=== PATIENT | female | born 1935 | race Caucasian/White ===

== ENCOUNTER 2018-10-08 01:19 | Inpatient (IN) | payer OTHER, MEDICAID ==
[~2018-10-08] VITALS: Ht 157.5 cm; Wt 90.3 kg
[~2018-10-08 01:19] MED LIST: ACET-2165 PO; ASPI-1153 PO; ATOR20TA64 PO; CARV3.1246 PO; CRAN450C PO; DICL100G19 TP; DIPH25CA83 PO; DOCU250C14 PO; DULR10 RC; ESCI10TA PO; FAMO40TA7 PO; FENT1PAT8 TD; FURO-150 PO; IPRA3AMP9 INH; LORA-258 PO; NEU300 PO; OXYC10TA56 PO; VENL75CA PO; ZOLP5TAB2 PO; [UNRECOGNIZED DRUG - CODE] TP
[2018-10-08 01:22] VITALS: BP_SYST 147
[2018-10-08] MEDS ORDERED: LEVOFLOXACIN 500 MG/D5W 100 ML IV ONE (02:15)
[2018-10-08 02:25] LABS: BASOPHILS % (AUTO) 0.5 % (0.0-2.0); EOSINOPHILS # (AUTO) 0.3 K/uL (0.0-0.4); EOSINOPHILS % (AUTO) 3.1 % (0.0-4.0); HEMOGLOBIN 10.5 g/dL (12.0-16.0); LYMPHOCYTES # (AUTO) 2.2 K/uL (1.0-5.5); MEAN CORPUSCULAR HEMOGLOBIN 32 pg (27-31); MEAN CORPUSCULAR HGB CONC 34 % (32-36); MEAN CORPUSCULAR VOLUME 96 fL (79.0-98.0); MONOCYTES # (AUTO) 0.5 K/uL (0.0-1.0); MONOCYTES % (AUTO) 5.8 % (1.7-9.3); NEUTROPHILS # (AUTO) 5.6 K/uL (1.8-7.7); NEUTROPHILS % (AUTO) 64.6 % (40.0-70.0); PLATELET COUNT (AUTO) 175 K/uL (130-430); RED BLOOD CELL COUNT(AUTO) 3.24 MIL/uL (4.2-6.2); RED CELL DISTRIBUTION WIDTH 14.4 % (9.0-15.0); WHITE BLOOD COUNT (AUTO) 8.7 K/uL (4.8-10.8)
[2018-10-08] MEDS ORDERED: LIP20 PO (03:08)
[2018-10-08] MEDS ORDERED: DEXT30DR6 EACH EYE (03:08)
[2018-10-08] MEDS ORDERED: NEU300 PO (03:08)
[2018-10-08] MEDS ORDERED: CETI1TAB2 PO (03:08)
[2018-10-08] MEDS ORDERED: OCEAN NASAL SPRAY (03:08)
[2018-10-08] MEDS ORDERED: FAMO40TA71 PO (03:08)
[2018-10-08] MEDS ORDERED: TRAZ-218 PO (03:08)
[2018-10-08] MEDS ORDERED: OSCD500 PO (03:08)
[2018-10-08] MEDS ORDERED: ESCI20TA PO (03:08)
[2018-10-08] MEDS ORDERED: FERR140T2 PO (03:08)
[2018-10-08] MEDS ORDERED: FLEETMO RC (03:08)
[2018-10-08] MEDS ORDERED: RISP0.253 PO (03:08)
[2018-10-08] MEDS ORDERED: LIQUID PROTEIN PO (03:08)
[2018-10-08] MEDS ORDERED: MAALOX PO (03:08)
[2018-10-08 03:31] LABS: ANION GAP 3 (5-15); CALCIUM 8.6 mg/dL (8.4-11.0); CHLORIDE 105 mmol/L (98-107); CREATININE 0.68 mg/dL (0.55-1.30); GLUCOSE 98 mg/dL (70-99); POTASSIUM 3.7 mmol/L (3.5-5.1); SODIUM SERUM 142 mmol/L (136-145); UREA NITROGEN, BLOOD 17 mg/dL (8-21)
[2018-10-08 03:37] LABS: ALANINE AMINOTRANSFERASE 11 U/L (12-78); ALBUMIN 2.5 g/dL (3.4-4.8); ASPARTATE AMINOTRANSFERASE 18 U/L (10-37); TOTAL BILIRUBIN 0.2 mg/dL (0.0-1.0)
[2018-10-08 03:51] VITALS: BP_SYST 105
[2018-10-08] MEDS ORDERED: AMPICILLIN SODIUM/SULBACTAM NA 3 GM in NS 100 ML IV SCH (06:00)
[2018-10-08] MEDS ORDERED: AMPICILLIN SODIUM/SULBACTAM NA 3 GM VIAL ONE (06:01)
[2018-10-08] MEDS: AMPICILLIN SODIUM/SULBACTAM NA 3 GM in NS 100 ML IV SCH ×3 (06:10→23:47)
[2018-10-08 08:00] VITALS: BP_SYST 114
[2018-10-08] MEDS ORDERED: MINERAL OIL 133 ML ENEMA RC SCH (08:45)
[2018-10-08] MEDS ORDERED: FUROSEMIDE 20 MG TABLET PO ONE (08:45)
[2018-10-08] MEDS ORDERED: FUROSEMIDE 20 MG TABLET PO SCH (09:00)
[2018-10-08] MEDS: risperiDONE 0.25 MG TABLET (RisperDAL) PO SCH (09:07)
[2018-10-08] MEDS: DOCUSATE SODIUM 250 MG CAPSULE PO SCH ×2 (09:07→22:01)
[2018-10-08] MEDS: GABAPENTIN 300 MG CAPSULE PO SCH ×2 (09:08→22:01)
[2018-10-08] MEDS: FAMOTIDINE 20 MG TABLET PO SCH (09:08)
[2018-10-08] MEDS: FERROUS SULFATE 325 MG TABLET.DR PO SCH ×2 (09:08→22:01)
[2018-10-08] MEDS: ASPIRIN 81 MG TABLET(ECOTRIN) PO SCH (09:08)
[2018-10-08] MEDS: CALCIUM CARBONATE/VITAMIN D3 1 TAB TABLET PO SCH ×2 (09:08→22:01)
[2018-10-08 11:28] LABS: BILIRUBIN,URINE NEGATIVE (NEGATIVE); BLOOD, URINE 2+ (NEGATIVE); CLARITY/URINE CLOUDY (CLEAR); COLOR,URINE YELLOW (YELLOW); GLUCOSE,URINE NEGATIVE (NEGATIVE); KETONES,URINE NEGATIVE (NEGATIVE); LEUKOCYTE ESTERASE ,URINE 1+ (NEGATIVE); NITRITE, URINE POSITIVE (NEGATIVE); PH,URINE 7.5 (5.0-8.0); PROTEIN URINE NEGATIVE (NEGATIVE); UROBILINOGEN,URINE 0.2 (0.2-1.0)
[2018-10-08 12:07] LABS: BACTERIA,URINE MANY /HPF (None Seen)
[2018-10-08 12:54] VITALS: BP_SYST 106
[2018-10-08] MEDS: IPRATROPIUM/ALBUTEROL SULFATE 3 ML AMPUL.NEB (DUONEB) INH SCH ×2 (14:35→20:14)
[2018-10-08] MEDS: ACETAMINOPHEN 325 MG TABLET PO PRN (15:32)
[2018-10-08 17:35] VITALS: BP_SYST 99
[2018-10-08] MEDS: FUROSEMIDE 20 MG TABLET PO SCH (17:51)
[2018-10-08 20:00] VITALS: BP_SYST 107
[2018-10-08] MEDS ORDERED: PROTEIN PO SCH (21:00)
[2018-10-08] MEDS: CITALOPRAM HYDROBROMIDE 20 MG TABLET PO SCH (22:01)
[2018-10-08] MEDS: ATORVASTATIN 20 MG TABLET PO SCH (22:01)
[2018-10-08] MEDS: traZODone HCL 50 MG TABLET (DESYREL) PO SCH (22:01)
[2018-10-08] MEDS: SENNOSIDES 8.6 MG TABLET PO SCH (22:01)
[2018-10-08] MEDS: ENOXAPARIN SODIUM 30 MG/0.3 ML SYRINGE SUBCUT SCH (23:58)
[2018-10-09 04:30] VITALS: BP_SYST 126
[2018-10-09] MEDS: ACETAMINOPHEN 325 MG TABLET PO PRN ×3 (05:03→22:35)
[2018-10-09] MEDS: FUROSEMIDE 20 MG TABLET PO SCH ×2 (05:05→17:40)
[2018-10-09] MEDS: AMPICILLIN SODIUM/SULBACTAM NA 3 GM in NS 100 ML IV SCH ×3 (05:10→22:15)
[2018-10-09] MEDS: IPRATROPIUM/ALBUTEROL SULFATE 3 ML AMPUL.NEB (DUONEB) INH SCH ×2 (05:27→20:22)
[2018-10-09 08:00] VITALS: BP_SYST 128
[2018-10-09] MEDS: FAMOTIDINE 20 MG TABLET PO SCH (08:16)
[2018-10-09] MEDS: ASPIRIN 81 MG TABLET(ECOTRIN) PO SCH (08:16)
[2018-10-09] MEDS: FERROUS SULFATE 325 MG TABLET.DR PO SCH ×2 (08:16→20:31)
[2018-10-09] MEDS: CALCIUM CARBONATE/VITAMIN D3 1 TAB TABLET PO SCH ×2 (08:16→20:32)
[2018-10-09] MEDS: DOCUSATE SODIUM 250 MG CAPSULE PO SCH ×2 (08:16→20:31)
[2018-10-09] MEDS: risperiDONE 0.25 MG TABLET (RisperDAL) PO SCH (08:16)
[2018-10-09] MEDS: GABAPENTIN 300 MG CAPSULE PO SCH ×2 (08:16→20:31)
[2018-10-09] MEDS ORDERED: MAG-AL HYDROX/SIMETH 30 ML UDC PO PRN (08:30)
[2018-10-09] MEDS ORDERED: DEXTRAN EACH EYE SCH (09:00)
[2018-10-09] MEDS ORDERED: HYPROMELLOSE EACH EYE SCH (09:00)
[2018-10-09 13:17] VITALS: BP_SYST 116
[2018-10-09] MEDS: SODIUM CHLORIDE 0.65% NASAL SPRAY NS SCH ×2 (14:40→20:30)
[2018-10-09] MEDS: P-EPHED SUL/LORATADINE 1 TAB.SR TAB.SR.12H PO SCH ×2 (14:40→21:00)
[2018-10-09] MEDS: PEG 400/HYPROMELLOSE/GLYCERIN 15 ML DROPS EACH EYE SCH ×2 (14:40→20:30)
[2018-10-09 16:21] VITALS: BP_SYST 99
[2018-10-09] MEDS: VANCOMYCIN HCL 1,250 MG in NS 250 ML IV SCH (17:37)
[2018-10-09 20:00] VITALS: BP_SYST 124
[2018-10-09] MEDS: LORATADINE 10 MG TABLET PO SCH (20:31)
[2018-10-09] MEDS: CITALOPRAM HYDROBROMIDE 20 MG TABLET PO SCH (20:31)
[2018-10-09] MEDS: ATORVASTATIN 20 MG TABLET PO SCH (20:32)
[2018-10-09] MEDS: SENNOSIDES 8.6 MG TABLET PO SCH (20:32)
[2018-10-09] MEDS: traZODone HCL 50 MG TABLET (DESYREL) PO SCH (20:32)
[2018-10-09] MEDS: ENOXAPARIN SODIUM 30 MG/0.3 ML SYRINGE SUBCUT SCH (20:36)
[2018-10-10] MEDS ORDERED: traZODone HCL 50 MG TABLET (DESYREL) PO ONE
[2018-10-10 01:14] VITALS: BP_SYST 105
[2018-10-10] MEDS: ACETAMINOPHEN 325 MG TABLET PO PRN ×2 (05:45→13:56)
[2018-10-10] MEDS: AMPICILLIN SODIUM/SULBACTAM NA 3 GM in NS 100 ML IV SCH ×3 (05:46→21:29)
[2018-10-10] MEDS: FUROSEMIDE 20 MG TABLET PO SCH ×2 (06:18→17:38)
[2018-10-10] MEDS: IPRATROPIUM/ALBUTEROL SULFATE 3 ML AMPUL.NEB (DUONEB) INH SCH ×4 (06:38→19:50)
[2018-10-10 07:50] VITALS: BP_SYST 120
[2018-10-10] MEDS: PEG 400/HYPROMELLOSE/GLYCERIN 15 ML DROPS EACH EYE SCH ×3 (08:52→21:28)
[2018-10-10] MEDS: CALCIUM CARBONATE/VITAMIN D3 1 TAB TABLET PO SCH ×2 (08:53→21:28)
[2018-10-10] MEDS: ASPIRIN 81 MG TABLET(ECOTRIN) PO SCH (08:53)
[2018-10-10] MEDS: DOCUSATE SODIUM 250 MG CAPSULE PO SCH ×2 (08:53→21:27)
[2018-10-10] MEDS: GABAPENTIN 300 MG CAPSULE PO SCH ×2 (08:53→21:28)
[2018-10-10] MEDS: P-EPHED SUL/LORATADINE 1 TAB.SR TAB.SR.12H PO SCH ×2 (08:53→21:00)
[2018-10-10] MEDS: SODIUM CHLORIDE 0.65% NASAL SPRAY NS SCH ×2 (08:53→21:29)
[2018-10-10] MEDS: FAMOTIDINE 20 MG TABLET PO SCH (08:53)
[2018-10-10] MEDS: FERROUS SULFATE 325 MG TABLET.DR PO SCH ×2 (08:53→21:28)
[2018-10-10] MEDS: risperiDONE 0.25 MG TABLET (RisperDAL) PO SCH (08:54)
[2018-10-10 12:00] VITALS: BP_SYST 101
[2018-10-10 16:00] VITALS: BP_SYST 146
[2018-10-10] MEDS: traMADol HCL HCL 50 MG TABLET (ULTRAM) PO SCH ×2 (17:39→23:10)
[2018-10-10] MEDS: VANCOMYCIN HCL 1,250 MG in NS 250 ML IV SCH (17:42)
[2018-10-10 20:00] VITALS: BP_SYST 112
[2018-10-10] MEDS: traZODone HCL 50 MG TABLET (DESYREL) PO SCH (21:27)
[2018-10-10] MEDS: CITALOPRAM HYDROBROMIDE 20 MG TABLET PO SCH (21:28)
[2018-10-10] MEDS: SENNOSIDES 8.6 MG TABLET PO SCH (21:28)
[2018-10-10] MEDS: LORATADINE 10 MG TABLET PO SCH (21:28)
[2018-10-10] MEDS: ATORVASTATIN 20 MG TABLET PO SCH (21:28)
[2018-10-10] MEDS: ENOXAPARIN SODIUM 30 MG/0.3 ML SYRINGE SUBCUT SCH (21:44)
[2018-10-11] VITALS: BP_SYST 115
[2018-10-11] MEDS: IPRATROPIUM/ALBUTEROL SULFATE 3 ML AMPUL.NEB (DUONEB) INH SCH ×2 (06:06→18:18)
[2018-10-11] MEDS: FUROSEMIDE 20 MG TABLET PO SCH ×2 (06:09→18:35)
[2018-10-11] MEDS: traMADol HCL HCL 50 MG TABLET (ULTRAM) PO SCH ×4 (06:12→23:02)
[2018-10-11] MEDS: AMPICILLIN SODIUM/SULBACTAM NA 3 GM in NS 100 ML IV SCH ×3 (06:13→22:43)
[2018-10-11 08:00] VITALS: BP_SYST 92
[2018-10-11] MEDS: CALCIUM CARBONATE/VITAMIN D3 1 TAB TABLET PO SCH ×2 (09:18→20:19)
[2018-10-11] MEDS: DOCUSATE SODIUM 250 MG CAPSULE PO SCH ×2 (09:18→20:19)
[2018-10-11] MEDS: ASPIRIN 81 MG TABLET(ECOTRIN) PO SCH (09:19)
[2018-10-11] MEDS: P-EPHED SUL/LORATADINE 1 TAB.SR TAB.SR.12H PO SCH ×2 (09:19→20:20)
[2018-10-11] MEDS: FERROUS SULFATE 325 MG TABLET.DR PO SCH ×2 (09:19→20:18)
[2018-10-11] MEDS: PEG 400/HYPROMELLOSE/GLYCERIN 15 ML DROPS EACH EYE SCH ×3 (09:20→20:19)
[2018-10-11] MEDS: SODIUM CHLORIDE 0.65% NASAL SPRAY NS SCH ×2 (09:20→20:20)
[2018-10-11] MEDS: risperiDONE 0.25 MG TABLET (RisperDAL) PO SCH (09:20)
[2018-10-11] MEDS: GABAPENTIN 300 MG CAPSULE PO SCH ×2 (09:20→20:19)
[2018-10-11] MEDS: FAMOTIDINE 20 MG TABLET PO SCH (09:20)
[2018-10-11 11:57] VITALS: BP_SYST 96
[2018-10-11 16:18] VITALS: BP_SYST 96
[2018-10-11 17:40] VITALS: BP_SYST 99
[2018-10-11] MEDS: VANCOMYCIN HCL 1,250 MG in NS 250 ML IV SCH (18:36)
[2018-10-11 20:00] VITALS: BP_SYST 111
[2018-10-11] MEDS: SENNOSIDES 8.6 MG TABLET PO SCH (20:18)
[2018-10-11] MEDS: traZODone HCL 50 MG TABLET (DESYREL) PO SCH (20:18)
[2018-10-11] MEDS: ATORVASTATIN 20 MG TABLET PO SCH (20:19)
[2018-10-11] MEDS: LORATADINE 10 MG TABLET PO SCH (20:19)
[2018-10-11] MEDS: CITALOPRAM HYDROBROMIDE 20 MG TABLET PO SCH (20:19)
[2018-10-11] MEDS: ENOXAPARIN SODIUM 30 MG/0.3 ML SYRINGE SUBCUT SCH (20:30)
[2018-10-11] MEDS ORDERED: MUPIROCIN NASAL 2% OINT. NS SCH (21:00)
[2018-10-12 00:44] VITALS: BP_SYST 108
[2018-10-12] MEDS: IPRATROPIUM/ALBUTEROL SULFATE 3 ML AMPUL.NEB (DUONEB) INH SCH (01:23)
[2018-10-12] MEDS: AMPICILLIN SODIUM/SULBACTAM NA 3 GM in NS 100 ML IV SCH (05:50)
[2018-10-12] MEDS: FUROSEMIDE 20 MG TABLET PO SCH (05:51)
[2018-10-12] MEDS: traMADol HCL HCL 50 MG TABLET (ULTRAM) PO SCH ×2 (05:51→12:44)
[2018-10-12 06:27] LABS: BASOPHILS # (AUTO) 0.1 K/uL (0.0-0.2); BASOPHILS % (AUTO) 1.1 % (0.0-2.0); EOSINOPHILS # (AUTO) 0.3 K/uL (0.0-0.4); EOSINOPHILS % (AUTO) 3.6 % (0.0-4.0); HEMATOCRIT 33.5 % (36-48); HEMOGLOBIN 10.9 g/dL (12.0-16.0); LYMPHOCYTES % (AUTO) 26.1 % (20.5-51.5); MEAN CORPUSCULAR HEMOGLOBIN 31 pg (27-31); MEAN CORPUSCULAR HGB CONC 32 % (32-36); MEAN CORPUSCULAR VOLUME 96 fL (79.0-98.0); MONOCYTES # (AUTO) 0.6 K/uL (0.0-1.0); MONOCYTES % (AUTO) 7.8 % (1.7-9.3); NEUTROPHILS # (AUTO) 4.7 K/uL (1.8-7.7); NEUTROPHILS % (AUTO) 61.4 % (40.0-70.0); PLATELET COUNT (AUTO) 179 K/uL (130-430); RED BLOOD CELL COUNT(AUTO) 3.49 MIL/uL (4.2-6.2); RED CELL DISTRIBUTION WIDTH 14.7 % (9.0-15.0); WHITE BLOOD COUNT (AUTO) 7.6 K/uL (4.8-10.8)
[2018-10-12 06:48] LABS: ANION GAP 1 (5-15); CALCIUM 9.2 mg/dL (8.4-11.0); CHLORIDE 103 mmol/L (98-107); CREATININE 0.57 mg/dL (0.55-1.30); GLUCOSE 90 mg/dL (70-99); POTASSIUM 4.4 mmol/L (3.5-5.1); SODIUM SERUM 137 mmol/L (136-145); UREA NITROGEN, BLOOD 20 mg/dL (8-21)
[2018-10-12 08:00] VITALS: BP_SYST 131
[2018-10-12] MEDS ORDERED: ACETAMINOPHEN 325 MG TABLET PO PRN (08:30)
[2018-10-12] MEDS: FAMOTIDINE 20 MG TABLET PO SCH (08:33)
[2018-10-12] MEDS: ASPIRIN 81 MG TABLET(ECOTRIN) PO SCH (08:33)
[2018-10-12] MEDS: FERROUS SULFATE 325 MG TABLET.DR PO SCH (08:33)
[2018-10-12] MEDS: DOCUSATE SODIUM 250 MG CAPSULE PO SCH (08:33)
[2018-10-12] MEDS: P-EPHED SUL/LORATADINE 1 TAB.SR TAB.SR.12H PO SCH (08:34)
[2018-10-12] MEDS: PEG 400/HYPROMELLOSE/GLYCERIN 15 ML DROPS EACH EYE SCH ×2 (08:34→15:22)
[2018-10-12] MEDS: CALCIUM CARBONATE/VITAMIN D3 1 TAB TABLET PO SCH (08:34)
[2018-10-12] MEDS: GABAPENTIN 300 MG CAPSULE PO SCH (08:34)
[2018-10-12] MEDS: SODIUM CHLORIDE 0.65% NASAL SPRAY NS SCH (08:38)
[2018-10-12] MEDS: risperiDONE 0.25 MG TABLET (RisperDAL) PO SCH (08:58)
[2018-10-12] MEDS ORDERED: MUPIROCIN 2% TOPICAL OINTMENT 22 GM NS SCH (09:00)
[2018-10-12 11:33] VITALS: BP_SYST 121
[2018-10-12 15:26] VITALS: BP_SYST 132
[2018-10-12 16:26] VITALS: BP_SYST 141
[2018-10-12] MEDS ORDERED: CEFEPIME 1 GM in D5W 50 ML IV SCH (21:00)
== END 2018-10-12 17:10 | DRG 602 ==
LOC: SED 01:19 → SMU 02:39
PROVIDERS: ADMIT Family Medicine; ATTEND Family Medicine
DX: L03.115 Cellulitis of right lower limb (principal); E43 Unspecified severe protein-calorie malnutrition; N39.0 Urinary tract infection, site not specified; D64.9 Anemia, unspecified; M13.0 Polyarthritis, unspecified; F03.90 Unspecified dementia, unspecified severity, without behavioral disturbance, psychotic disturbance, mood disturbance, and anxiety; I10 Essential (primary) hypertension; E66.9 Obesity, unspecified; I89.0 Lymphedema, not elsewhere classified; J45.909 Unspecified asthma, uncomplicated; Z68.36 Body mass index [BMI] 36.0-36.9, adult; Z79.899 Other long term (current) drug therapy
CPT/HCPCS: 36415; 80048; 80053; 80202-TC; 81000-TC; 83605; 83735-TC; 85025; 85651-TC; 87040-TC; 87081; 87086; 94640; 94760; 96365; 99285; J0295; J0692; J1650; J1956; J3370; J7050; J7060; J7620

== ENCOUNTER 2020-11-18 11:57 | Emergency (ER) | payer OTHER, MEDICAID, SELFPAY ==
[~2020-11-18] VITALS: Ht 167.6 cm; Wt 95.3 kg
[~2020-11-18 11:57] MED LIST changes: -ACET-2165 PO; +ACET325T PO; +APIX2.5T PO; -ASPI-1153 PO; +ASPI-1393 PO; -ATOR20TA64 PO; +CALC-827 PO; -CARV3.1246 PO; -CRAN450C PO; +DEXT30DR6 EACH EYE; -DICL100G19 TP; -DIPH25CA83 PO; +DOCU-144 PO; -DOCU250C14 PO; -ESCI10TA PO; +ESCI20TA PO; +FAMO-279 PO; -FAMO40TA7 PO; -FENT1PAT8 TD; +FERR140T2 PO; -FURO-150 PO; -IPRA3AMP9 INH; +LACT1CAP89 PO; +LIP20 PO; -LORA-258 PO; +MAALOX PO; +MELA3TAB41 PO; +MOM PO; +MULT1CAP34 PO; -NEU300 PO; +NITR0.4T47 SL; -OXYC10TA56 PO; +PRED10TA PO; +SENN-153 PO; +TRAM50TA PO; -VENL75CA PO; -ZOLP5TAB2 PO; -[UNRECOGNIZED DRUG - CODE] TP
[2020-11-18 12:12] VITALS: BP_SYST 123
[2020-11-18] MEDS ORDERED: HYDROCORTISONE SOD SUCC 100 MG/2 ML VIAL IVP ONE (13:00)
[2020-11-18] MEDS ORDERED: MORPHINE 4 MG INJ. 4 MG/ML VIAL IM ONE (16:45)
[2020-11-18 20:09] VITALS: BP_SYST 104
== END 2020-11-18 20:09 ==
LOC: SED 11:57
DX: M24.411 Recurrent dislocation, right shoulder (principal); J44.9 Chronic obstructive pulmonary disease, unspecified; K21.9 Gastro-esophageal reflux disease without esophagitis; F41.9 Anxiety disorder, unspecified; Z79.82 Long term (current) use of aspirin; Z79.899 Other long term (current) drug therapy
CPT/HCPCS: 73030; 73060; 96372; 99284; J2270